=== PATIENT | female | born 1970 | race Caucasian/White ===

== ENCOUNTER 2017-08-28 08:45 | Day surgery (SDC) | payer OTHER ==
[~2017-08-28 08:45] MED LIST: LIDOCAINE HCL 1% MPF 30 SOL ONE; PROPOFOL 500 MG/50 ML EMU IV ONE
[2017-08-28] MEDS ORDERED: PROPOFOL 500 MG/50 ML EMU IV ONE (10:46)
[2017-08-28 11:01] VITALS: TEMP 97.4
[2017-08-28 11:22] VITALS: RESP 20
[2017-08-28 11:37] VITALS: BP 115/79; PULSE 80; O2SAT 100
== END 2017-08-28 11:45 | disposition home or self-care (01) | DRG 392 ==
LOC: SURG 08:45
PROVIDERS: ATTEND Internal Medicine Gastroenterology
DX: R10.11 Right upper quadrant pain (principal); K29.70 Gastritis, unspecified, without bleeding; R14.0 Abdominal distension (gaseous); Z84.89 Family history of other specified conditions; Q89.9 Congenital malformation, unspecified; K44.9 Diaphragmatic hernia without obstruction or gangrene; K64.8 Other hemorrhoids
CPT/HCPCS: J2001; J2704